=== PATIENT | female | born 1940 | race Caucasian/White ===

== ENCOUNTER → 2016-07-20 | Outpatient (CLI) | payer OTHER, MEDICARE ==
--- NOTE | 2016-07-20 10:07 | MA ---
Screening Digital Mammogram Clinical Indications: Routine screening. Technique: Standard cephalocaudal and mediolateral oblique projections were obtained. This examinat ion was processed by the Intrapace computer aided detection system. Comparison: June 2015, June 2014, June 2013 and June 2011. Breast density: A; The breast tissue is mostly fat. Findings: CAD was reviewed. No suspicious findings are identified. Impression: Negative mammogram. BI-RADS 1. Recommendation: Routine screening is recommended in one year, as long as physical examination is magdaleno ign in this patient with extremely dense breast parenchyma. [facility] will send a result letter to the patient. Negative mammography should not preclude additional workup of a clinically suspicious finding. The patient's information is entered into a reminder system with a target due date for her next mammo gram.
== END ==
LOC: FIMAGING 09:27
DX: Z12.31 Encounter for screening mammogram for malignant neoplasm of breast (principal)
CPT/HCPCS: G0202

== ENCOUNTER → 2017-03-28 | Outpatient (CLI) | payer OTHER, MEDICARE ==
[~2017-03-28] MED LIST: GADOBUTROL 10 ML VIAL IVP ONE
== END ==
LOC: FIMAGING 15:35
PROVIDERS: ATTEND Internal Medicine
DX: H53.9 Unspecified visual disturbance (principal); R47.89 Other speech disturbances
CPT/HCPCS: 70553; A9585

== ENCOUNTER → 2017-07-21 | Outpatient (CLI) | payer OTHER, MEDICARE | LOC: FIMAGING 11:40 | PROVIDERS: ATTEND Internal Medicine | DX: Z12.31 Encounter for screening mammogram for malignant neoplasm of breast (principal) ==

== ENCOUNTER → 2018-02-28 | Outpatient (CLI) | payer OTHER, MEDICARE | DX: Q76.49 Other congenital malformations of spine, not associated with scoliosis (principal); M47.816 Spondylosis without myelopathy or radiculopathy, lumbar region; M51.36 Other intervertebral disc degeneration, lumbar region; M48.061 Spinal stenosis, lumbar region without neurogenic claudication; M99.23 Subluxation stenosis of neural canal of lumbar region; M99.53 Intervertebral disc stenosis of neural canal of lumbar region | CPT/HCPCS: 72158; A9585; 82565-PO ==

== ENCOUNTER → 2018-03-09 | Outpatient (CLI) | payer OTHER, MEDICARE | LOC: FIMAGING 19:16 | PROVIDERS: ATTEND Internal Medicine | DX: M25.811 Other specified joint disorders, right shoulder (principal) ==

== ENCOUNTER → 2018-07-27 | Outpatient (CLI) | payer OTHER, MEDICARE | LOC: FIMAGING 12:29 | PROVIDERS: ATTEND Internal Medicine | DX: Z12.31 Encounter for screening mammogram for malignant neoplasm of breast (principal) ==

== ENCOUNTER 2018-08-16 05:34 | Inpatient (IN) | payer OTHER, MEDICARE ==
[2018-08-16 06:27] LABS: PLATELET COUNT 179 10^3/uL (150-400)
[2018-08-16] MEDS ORDERED: LR 1,000 ML IV ONE (06:27)
[2018-08-16] MEDS ORDERED: LIDOCAINE 1% 2 ML INJ ID PRN (06:27)
[2018-08-16] MEDS ORDERED: BUPIVACAINE/EPI 0.5% 30 ML SDV ONE ×2 (06:38→09:16)
[2018-08-16] MEDS ORDERED: SURGIFLO MATRIX KIT WITH THROMBIN 8 ML TP ONE (06:38)
[2018-08-16] MEDS ORDERED: BACITRACIN 50,000 UNITS/10 ML SYR IRR ONE (06:39)
[2018-08-16] MEDS ORDERED: TRANEXAMIC ACID 1,000 MG in NS 100 ML IV ONE (06:55)
[2018-08-16] MEDS ORDERED: ceFAZolin 2 GM/DEXTROSE 100 ML IV ONE (06:55)
--- NOTE | 2018-08-16 06:57 | PDHPUP ---
History & Physical Update H&P update statement: This history and physical update is based on an assessment of the patient which was completed after admission or registration (within 24 hours), but prior to the surgery/procedure. H&P update: changes noted H&P changes: Heart and lungs examined: lungs CTAB, heart RRR without murmurs, rubs, or gallops.
[2018-08-16] MEDS ORDERED: PROPOFOL/EMULSION 500 MG/50 ML BOTTLE IV ONE (07:08)
[2018-08-16] MEDS ORDERED: PROPOFOL 200 MG/20 ML VIAL ONE (07:08)
[2018-08-16] MEDS ORDERED: fentaNYL 100 MCG/2 ML INJ ONE ×4 (07:08→11:09)
--- NOTE | 2018-08-16 07:11 | PDANEPAE ---
ANE Past Medical History - Cardiovascular History Hx Hypertension: Yes Hx Arrhythmias: No Hx Chest Pain: No Hx Coronary Artery / Peripheral Vascular Disease: Yes Hx CHF / Valvular Disease: No Hx Palpitations: No Cardiovascular History Comment: mild CAD - Pulmonary History Hx COPD: No Hx Asthma/Reactive Airway Disease: No Hx Recent Upper Respiratory Infection: No Hx Oxygen in Use at Home: No Hx Sleep Apnea: No Sleep Apnea Screening Result - Last Documented: Negative - Neurologic History Hx Cerebrovascular Accident: No Hx Seizures: No Hx Dementia: No Neurologic History Comment: 2016 MIGRAINES - Endocrine History Hx Diabetes: No - Renal History Hx Renal Disorders: No - Liver History Hx Hepatic Disorders: No - Neurological & Psychiatric Hx Hx Neurological and Psychiatric Disorders: Yes Neurological / Psychiatric History Comment: 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 back sx 2011 ANE Review of Systems Review of Systems: - Exercise capacity METS (RN): 4 METS ANE Patient History - Allergies Allergies/Adverse Reactions: levofloxacin [Levofloxacin] Allergy (Severe, Verified 08/16/18 06:44) SHARP PAIN IN ANKLE ciprofloxacin [From Cipro] Allergy (Verified 08/16/18 06:44) GI Upset nitrofurantoin [From Macrobid] Allergy (Verified 08/16/18 06:44) GI Upset - Home Medications Home Medications: Aspirin EC [Aspirin EC 81 mg (OTC)] 81 mg PO HS 11/19/15 [Last Taken 08/09/18] Chlorthalidone [Chlorthalidone 25 mg (RX)] 25 mg PO DAILY 11/19/15 [Last Taken 08/15/18] Colesevelam HCl [Welchol (*)] 1,250 mg PO BID@12,18 11/19/15 [Last Taken ] Herbals/Supplements -Info Only 1 ea PO DAILY 11/19/15 [Last Taken 11/19/15 07:00 ] Multivitamins [Multivitamin (*)] 1 tab PO DAILY 11/19/15 [Last Taken 11/19/15 07 :00] Tignall-3 Fatty Acids [Fish Oil 1000 mg (*)] 2,000 mg PO DAILY 11/19/15 [Last Taken 11/19/15 07:00] Cholecalciferol Vit D3 [Vitamin D3 2000 units tab (OTC)] 2,000 units PO DAILY [Last Taken 08/14/18] Estradiol [Estrace Vaginal (*)] 1 yeimi VG TU 08/07/18 [Last Taken 08/14/18] Famotidine [Pepcid 20 MG (*)] 20 mg PO DAILY 08/07/18 [Last Taken 08/16/18] Nebivolol HCl [Bystolic] 2.5 mg PO HS 08/07/18 [Last Taken 08/15/18] Niacin ER [Niaspan 1000 mg (*)] 1,000 mg PO HS 08/07/18 [Last Taken Unknown] Potassium Cl [Klor-Con 20 meq (*)] 60 meq PO DAILY 08/07/18 [Last Taken 08/15/18 ] - NPO status NPO Since - Liquids (Date): 08/16/18 NPO Since - Liquids (Time): 04:00 NPO Since - Solids (Date): 08/16/18 NPO Since - Solids (Time): 18:00 - Smoking Hx Smoking Status: Former smoker - Family Anes Hx Family Hx Anesthesia Complications: none ANE Labs/Vital Signs - Labs Result Diagrams: 08/16/18 06:15 08/16/18 06:15 - Vital Signs Blood Pressure: 149/72 Heart Rate: 62 Respiratory Rate: 16 O2 Sat (%): 97 Height: 157.48 cm Weight: 68.039 kg ANE Physical Exam - Airway Mallampati Score: Class 2 - ASA Status ASA Status: II, III ANE Anesthesia Plan Anesthesia Plan: general endotracheal anesthesia
[2018-08-16] MEDS ORDERED: REMIFENTANIL HCL 1 MG VIAL ONE (07:12)
[2018-08-16] MEDS ORDERED: SUCCINYLCHOLINE CHLORIDE 200 MG/10 ML SYR IVP ONE (08:31)
[2018-08-16] MEDS ORDERED: DEXAMETHASONE 4 MG/ML VIAL ONE ×3 (08:31→09:16)
[2018-08-16] MEDS ORDERED: AMPICILLIN/SULBACTAM 3 GM in NS 100 ML IV ONE (09:08)
[2018-08-16] MEDS ORDERED: GLYCOPYRROLATE 0.2 MG/1 ML VIAL ONE (09:47)
[2018-08-16] MEDS ORDERED: ePHEDrine SULFATE 25 MG/5 ML SYR ONE (09:47)
[2018-08-16] MEDS ORDERED: PHENYLEPHRINE HCL 100 MCG/ML SYR ONE ×2 (09:47)
[2018-08-16] MEDS ORDERED: VANCOMYCIN 500 MG/10 ML VIAL IV ONE (10:04)
[2018-08-16] MEDS ORDERED: DIAZEPAM 5 MG/ML 1 ML SYR IVP PRN (10:14)
[2018-08-16] MEDS ORDERED: ONDANSETRON 4 MG/2 ML VIAL IVP PRN ×2 (10:14→11:25)
[2018-08-16] MEDS ORDERED: MEPERIDINE 25 MG/0.5 ML AMP IVP PRN (10:14)
[2018-08-16] MEDS ORDERED: METOCLOPRAMIDE 10 MG/2 ML VIAL IVP PRN (10:14)
[2018-08-16] MEDS ORDERED: NALOXONE HCL 0.4 MG/ML INJ IVP PRN (10:14)
[2018-08-16] MEDS ORDERED: LR 500 ML IV PRN (10:14)
[2018-08-16] MEDS ORDERED: ALBUTEROL 3 ML DEYVIAL IH PRN (10:14)
[2018-08-16] MEDS ORDERED: LABETALOL HCL 5 MG/ML 20 ML MDV IVP PRN (10:14)
[2018-08-16] MEDS ORDERED: PROMETHAZINE HCL 25 MG/ML INJ IVP PRN (10:14)
[2018-08-16] MEDS: fentaNYL 100 MCG/2 ML INJ IVP PRN ×4 (10:50→11:25)
[2018-08-16] MEDS ORDERED: HYDROmorphONE/DILAUDID 2 MG/ML INJ ONE (11:09)
[2018-08-16] MEDS: HYDROmorphONE/DILAUDID 2 MG/ML INJ IVP PRN ×3 (11:12→11:38)
[2018-08-16] MEDS ORDERED: LACTULOSE 20 GM/30 ML UDCUP PO PRN (11:25)
[2018-08-16] MEDS ORDERED: ONDANSETRON DISINTEGRATING 4 MG TAB PO PRN (11:25)
[2018-08-16] MEDS ORDERED: diphenhydrAMINE 25 MG CAP PO PRN (11:25)
[2018-08-16] MEDS ORDERED: BISACODYL 10 MG SUPP PR PRN (11:25)
[2018-08-16] MEDS ORDERED: MAGNESIUM HYDROXIDE 30 ML UDCUP PO PRN (11:25)
[2018-08-16] MEDS ORDERED: POLYETHYLENE GLYCOL 3350 17 GM PKT PO PRN (11:25)
[2018-08-16] MEDS ORDERED: oxyCODONE IR 5 MG TAB PO PRN (11:25)
[2018-08-16] MEDS ORDERED: DIAZEPAM 5 MG/ML 1 ML SYR ONE (11:46)
[2018-08-16] MEDS: METHOCARBAMOL 750 MG TAB PO PRN ×3 (12:55→23:56)
[2018-08-16] MEDS: ACETAMINOPHEN 500 MG TAB PO SCH ×2 (12:55→21:32)
[2018-08-16] MEDS: ceFAZolin 2 GM/DEXTROSE 100 ML IV SCH ×2 (13:06→21:45)
--- NOTE | 2018-08-16 13:25 | SUROPNOTE ---
GERMAIN Operative Report - Surgery Date: Pre-operative Diagnoses: L3/4 Degenerative disc disease and spondylosis L3/4 Degenerative spondylolisthesis Bilateral L3 pars insufficiency fractures Lumbar spinal stenosis Post-operative Diagnosis: Same Procedures: Left L3/4 Minimally invasive extreme lateral interbody fusion (XLIF) L3/4 Anterior column plate and screw fixation Right L3/4 Minimally Invasive Posterior Lumbar Fusion with Instrumentation Reduction of bilateral pars insufficiency fractures Structural use of allograft Use of intra-operative fluoroscopy Use of intra-operative neuromonitoring, including MEP, EMG and SSEP modalities Surgeon: Zac Doyle MD Assist: Zaina Falk Anesthesia: General endotracheal anesthesia Findings: As expected spondylolisthesis, spinal stenosis, facet hypertrophy Estimated Blood Loss: 100mL Drains: None Specimens: None Complications: None. (See note regarding tongue laceration repaired by Dr. Wagner) Condition: Transferred to PACU in stable condition Implants: NuVasive XLIF Cage: 45mm x 10deg x 8mm x 18mm Anterior Column Plate: modulus incorporated plate Anterior Screws: 40mm decade bolt x1 Posterior Pedicle Screws: 5.5x40mm (L3), 6.5x40mm (L4) Sergei: 35mm Allograft: 3mL allograft used structurally in the disc space and interbody cage Indications: This patient was seen in my office and diagnosed with degenerative spondylolisthesis and spinal stenosis. I have explained all options of treatment for the patient, and the patient has elected to proceed with operative management. I have explained all risks, benefits, and alternatives of the proposed procedure. The risks that we have discussed include , blindness, nerve damage, infection, dural tear, failure of surgery to alleviate pre-operative symptoms, nonunion, and possible need for further operation. I explained separately the risks of allograft, including infection and disease transfer. I specifically discussed the additional risks of XLIF, including but not limited to vascular damage, femoral nerve radiculopathy, or weakness. In addition to the aforementioned procedure, I discussed with the patient that other procedures may be indicated during the course of surgery that would be considered in the patients best interest. The patient expressed understanding of this and agreed to move forward with operative management. Pre-operative: The proposed incision sites (left lateral and right posterior) were marked in the pre-operative holding area by me. The patient was then taken to the operating room in stable condition. Following smooth induction of general anesthesia, the patient was positioned in a left lateral decubitus position on a flat OR table with all down surfaces well-padded. The patient was then prepped and draped in the usual sterile fashion. Pre-operative antibiotics were administered within one hour of the incision. A surgical timeout was performed, and all parties involved in the procedure were in agreement on the correct patient, location, and procedure to be performed. Level localization and spinal pause: After the table was broken to allow for appropriate access to the L3/4 disc space, x-rays were taken to make sure that the operative disc space was properly marked out. Once the disk space was marked out from a lateral approach , a local anesthetic with epinephrine was injected into~the area and approximately a 3cm incision was then made over the side overlying the disk directly lateral to it. Subdermal fat was then explored and moved aside. The external and internal oblique muscles were then dissected bluntly using finger and Metzenbaum scissors. The retroperitoneal space was then entered using manual palpation. The transverse process and the~disk space of the operative level was palpated. A wire was then placed into the operative disc space and confirmed on both AP and lateral radiographs. Serial dilators were~then placed in position here to allow for an XLIF retractor. The XLIF retractor was then placed over the operative disk space. This was again confirmed~by AP and lateral radiographs and then a nerve detection system was used to ensure that the lumbar plexus was not violated. Placement of XLIF interbody cage, reduction of spondylolisthesis and bilateral pars insufficiency fractures: ~A posterior dasha was then placed into the posterior third of the vertebral body and retracted forward or~anteriorly. An ALL protector was then placed anteriorly over the front of the anterior vertebral bodies. The disk space was then incised and the annulus fibrosis was removed. Serial disk preparation tools including a Estrada curette, box cutters, #5 Kerrison and pituitary rongeur was used to prep the disk space. This was also flushed several times to ensure that the disk space~was empty of any remaining debris. At this time, a trial was then placed and~the appropriately sized cage was selected. The cage was~ then packed with 5 mL of allograft bone and this was gently malleted in place~ and again confirmed by both AP and lateral radiographs. The molding press operator was then removed. Attention was then turned towards the plate placement. At this~time, an anterior column plate was then placed laterally over the cage itself. Screw holes were then drilled into both the cephalad and caudal vertebrae levels. Appropriately-sized screws were then placed into both vertebrae with just enough purchase for a bicortical bite within the vertebral body. Again, radiographs confirmed both placement of the graft and the screws. The L3/4 spondylolisthesis and L3 pars insufficiency fractures were noted to be reduced. At this time, all monitoring was noted to be stable. Closure of lateral incision: Attention was then turned towards closure. Several #1 Vicryl sutures were used to reapproximate the fascia overlying the oblique muscles. A 2-0 Monocryl sutures were then used to repair the subcutaneous tissues and a 4-0 Monocryl was used to repair the skin. Glue was then used over the top of this and this surgical site was then~sealed completely. Patient transfer: The patient was then carefully transferred to a Yomi table, and positioned prone with all down surfaces well-padded. The patient was then prepped and draped in the usual sterile fashion. A second surgical timeout was performed, and all parties involved in the procedure were in agreement on the correct patient, location, and procedure to be performed. Tongue laceration and repair: At this time, when the patient was placed supine, an anterior tongue laceration was noted. This was repaired primarily by Dr. Pantera Wagner. Please see his separate dictation for further details. Pedicle screw placement: All pedicle screws were placed in a percutaneous fashion. Using biplanar fluoroscopy, a Jamshidi needle was gently malleted into place at the appropriate pedicle screw starting position at the lateral border of the facet on the AP view and mid-point of the pedicle on lateral view. The needle was advanced just past the pedicle into the vertebral body. At this point, a neurostimulating probe was attached to the end of the needle and the potentials were noted to be above 20 milliamps. The central trocar was then removed, and a blunt K-wire was passed into the cannulated pedicle. The Jamshidi was then removed completely, with the K-wire anchored in the vertebral body. A tap was then used up to a size that was 1mm below the final screw size based on pre- operative templating. An appropriately-sized screw was placed at each level and confirmed fluoroscopically. All screws were then stimulated. Each screw was stimulated and potentials were all above 20 milliAmps. Sergei and set screw placement: Using a percutaneous sergei passer, an appropriately-sized 35mm sergei was then placed into the pedicle screw heads with ample sergei extending from either end. To ensure that the rods were appropriately positioned, three checks were performed: the rods were visually inspected, the insertion handle was torqued and both towers were visualized to move, and a lateral radiograph was taken to ensure an appropriate length to the rods. At this point, a lateral radiograph was taken and reduction of the vertebral insufficiency fractures was noted. Of note, there were no changes in the SSEP and EMG monitoring during this maneuver. Set screws were then placed into the cephalad pedicle screws over the rods, and all set screws were tensioned using a torque-limited screwdriver. Closure: The surgical field was then copiously irrigated with sterile saline. Vancomycin powder was then applied to the surgical field. A small drain was placed deep to the fascia and brought out of the skin superior and laterally. The drain was then sewn to skin. #1 vicryl suture were used to repair the fascia in an interrupted fashion. Then 2-0 interrupted sutures were used to repair the dermal layer, and a separate 3-0 monofilament suture was used to repair the subcutaneous layer in a running fashion. All sutures used were absorbable. Topical adhesive was then applied to the skin and allowed to dry. A sterile island dressing was applied over the surgical incision. A surgical count was performed before initiation of closure and following the procedure, and all were correct. I was present for the entire procedure. Surgical microscope use: A surgical microscope was utilized throughout the decompressive portion of this case. This was deemed necessary for safe and accurate surgical decompression of affected nerve roots. Neuromonitoring: SSEP, MEP and EMG were used throughout the case from incision until the beginning of closure. There were no significant changes throughout the case, and SSEP signals were at their pre-surgical baseline levels before surgical closure was initiated. talent acquisition assistant: A medical surgical tech was used throughout the case, and deemed necessary for safe neural retraction, hemostasis, and suction. Recovery: The patient was extubated uneventfully in the operating room. The patient was taken to the recovery room in stable condition. Sequential compression devices for VTE prophylaxis were applied to the patients lower extremities, and were ordered to be used while the patient was non-ambulatory. Chemical VTE prophylaxis was considered to be contraindicated for this patient because of the risk of bleeding near the epidural space. Zac Doyle MD
[2018-08-16] MEDS: COLESEVELAM HCL 625 MG TAB PO SCH ×2 (14:41→18:01)
--- NOTE | 2018-08-16 15:44 | POSTANESTH ---
Post Anesthetic Evaluation Cardiovascular Status: Normal, Stable Respiratory Status: Normal, Stable Level of Consciousness/Mental Status: Can Participate in Eval Pain Control: Adequate, Prn Tx Ordered Nausea/Vomiting Control: Adequate, Prn Tx Ordered Complications Possibly Related to Anesthesia: Other, See Comments (I talked to the patient once she had emerged fully from anesthesia and explained what happened in the OR. I apologized for the tongue laceration and explained that we had taken precautions but they had not been good enough. She was appreciative and understood that things happen.)
--- NOTE | 2018-08-16 16:01 | PDMN ---
Medical Necessity Medical necessity: Pt meets IP criteria as of 08/16/2018 per and [facility] S-820 ( Lumbar Fusion); Medicare IP only procedure
[2018-08-16] MEDS: traMADol 50 MG TAB PO PRN (18:06)
[2018-08-16] MEDS ORDERED: NEBIVOLOL HCL 5 MG TAB PO SCH (21:00)
[2018-08-16] MEDS ORDERED: NIACIN ER 1000 MG TAB.ER PO SCH (21:00)
[2018-08-16] MEDS: SENNOSIDES/DOCUSATE SODIUM TAB PO SCH (21:32)
[2018-08-16] MEDS: FAMOTIDINE 20 MG TAB PO SCH (21:35)
--- NOTE | 2018-08-17 02:58 | GOP ---
[f rep st] OPERATIVE REPORT DATE OF OPERATION: 08/16/2018 SURGEON: Pantera Wagner MD PREOPERATIVE DIAGNOSIS: POSTOPERATIVE DIAGNOSIS: PROCEDURE PERFORMED: FINDINGS: The patient had a 2 cm long laceration on the anterior tongue along the ventral surface ex tending almost to the dorsal surface with one small opening into the dorsal region. There was some o ozing of blood, but it was not significant. I examined the wound. I felt it was far away from the b ranches of the distal aspect of the lingual nerve and certainly did not see any evidence of arterial bleeding. It was not involving the Warthin duct of the submandibular gland. DESCRIPTION OF PROCEDURE: I closed the laceration with 5 interrupted 3-0 chromic sutures with good h emostasis. I then injected 3 cc of 0.5% Marcaine with 1:200,000 epinephrine. The procedure then con tinued with the remainder of the planned spinal operation. I will be available while the patient is in the hospital for assistance and I would like to see her b ack in my office in 1-2 weeks to reexamine the tongue. REASON FOR CONSULTATION: Tongue laceration intraoperatively. REQUESTING PHYSICIAN: Dr. Zac Doyle. HISTORY: The patient is a 77-year-old woman who was undergoing a complex spinal procedure this morni ng. She was noted probably through the operation to have accidentally bitten her own tongue despite the proper placement of bite guards within the mouth. I was contacted to assist with treating the to ngue laceration. /[id number]/MODL
[2018-08-17] MEDS: ACETAMINOPHEN 500 MG TAB PO SCH (06:04)
[2018-08-17] MEDS: FAMOTIDINE 20 MG TAB PO SCH (08:12)
[2018-08-17] MEDS: traMADol 50 MG TAB PO PRN ×2 (08:12→13:39)
[2018-08-17] MEDS: SENNOSIDES/DOCUSATE SODIUM TAB PO SCH (08:13)
[2018-08-17] MEDS: CHLORTHALIDONE 25 MG TAB PO SCH ×3 (08:15→11:44)
[2018-08-17] MEDS: COLESEVELAM HCL 625 MG TAB PO SCH (11:03)
[2018-08-17 11:38] VITALS: BP 142/65
--- NOTE | 2018-08-17 13:07 | GDS ---
[f rep st] DISCHARGE SUMMARY The patient underwent an L4-5 left XLIF and posterior screw stabilization on August 16 without com plications from the spine operation. She did, however, have a tongue laceration during the procedure which was fixed intraoperatively by Dr. Pantera Wagner. Moving forward, the patient will be discharged home. She will not bend, lift greater than 10 pounds, or twist about the lumbar spine, and is to wear the brace at all times when she is up for longer per iods. She can resume a regular diet but may want to stick with some smooth textures given her tongue . She has been prescribed narcotic as well as a muscle relaxer. She will start physical therapy at 6 weeks, and she will see me in 2 weeks' time for her incision checks. She has my cell phone if any further issues arise. She will also see Dr. Pantera Wagner for her tongue laceration followup. All questions were answered for the patient, and we will send her home today. /[id number]/MODL
--- NOTE | 2018-08-17 13:07 | GPROG ---
[f rep st] PROGRESS NOTE I saw the patient this morning. Overall, she is doing quite well. She reports that she has had a little bit of difficulty with eating with her tongue, but she has been able to tolerate some soft foods such as scrambled eggs and smoothies. PHYSICAL EXAM: She has no sensory, motor, or vascular deficits. She has a little bit of weakness on her left iliopsoas as expected, but her quadriceps is full strength. Dressings are clean, dry, intact and left in place. IMPRESSION: Postoperative day 1 status post minimally invasive surgery, L4-5 fusion. ASSESSMENT AND PLAN: The patient has really done remarkably from the operation. I did explain the tongue laceration and the repair during the procedure. She expressed understanding. She has done quite well with physical therapy. She will be discharged home today in stable condition. She will see me in the office in 2 weeks. She has my cell phone if any further questions arise. She will also see Dr. Pantera Wagner in a week to address her tongue. /[id number]/MODL MTDD
--- NOTE | 2018-08-17 14:01 | ASMTLACE ---
LACE Length of stay for Answers: 2 days current admission Acuity / Level of Answers: Yes Care: Did the patient have an inpatient admission? Comorbidities - select Answers: Coronary Artery Disease all that apply Opioid dependence / Chronic pain Other Notes: HTN # of Emergency department Answers: 0 visits in the last 6 months Score: 12 Date Signed: 08/17/2018 02:00 PM Electronically Signed By:GLORIA Xie
--- NOTE | 2018-08-17 14:02 | ASMTCMCOM ---
CM Note CM Note Notes: Pt had planned surgery, resides with [facility]. Pt medically stable for d/c, no CM d/c needs identified. PT rec home/outpatient. Date Signed: 08/17/2018 02:01 PM Electronically Signed By:GLORIA Xie
== END 2018-08-17 13:49 | disposition home or self-care (01) | DRG 454 ==
LOC: F3N 05:34 → INTOOBSV 05:34 → F3N 12:29 → OBSVTOIN 15:57
PROVIDERS: ADMIT Orthopaedic Surgery Orthopaedic Surgery of the Spine; ATTEND Orthopaedic Surgery Orthopaedic Surgery of the Spine
PROC: 0SG00A0 Fusion of Lumbar Vertebral Joint with Interbody Fusion Device, Anterior Approach, Anterior Column, Open Approach (ICD-10-PCS; principal; 2018-08-16 07:15)
PROC: 4A1004G Monitoring of Central Nervous Electrical Activity, Intraoperative, Open Approach (ICD-10-PCS; principal; 2018-08-16 07:15)
PROC: 8E0WXBF Computer Assisted Procedure of Trunk Region, With Fluoroscopy (ICD-10-PCS; principal; 2018-08-16 07:15)
PROC: 0CQ7XZZ Repair Tongue, External Approach (ICD-10-PCS; principal; 2018-08-16 07:15)
PROC: 0SG03J1 Fusion of Lumbar Vertebral Joint with Synthetic Substitute, Posterior Approach, Posterior Column, Percutaneous Approach (ICD-10-PCS; principal; 2018-08-16 07:15)
DX: M43.16 Spondylolisthesis, lumbar region (principal); M84.48XA Pathological fracture, other site, initial encounter for fracture; S01.512A Laceration without foreign body of oral cavity, initial encounter; M48.062 Spinal stenosis, lumbar region with neurogenic claudication; X58.XXXA Exposure to other specified factors, initial encounter; Y92.234 Operating room of hospital as the place of occurrence of the external cause; I10 Essential (primary) hypertension; I25.10 Atherosclerotic heart disease of native coronary artery without angina pectoris; G43.909 Migraine, unspecified, not intractable, without status migrainosus; G89.29 Other chronic pain; Z85.820 Personal history of malignant melanoma of skin; Z87.891 Personal history of nicotine dependence
CPT/HCPCS: 97161-GP; 97165-GO; C1713; C1762; J0295; J0330; J0690; J1100; J1170; J2370; J2704; J3010; J3360; J3370